=== PATIENT | female | born 1970 | race Caucasian/White ===

== ENCOUNTER 2017-09-09 06:47 | Day surgery (SDC) | payer BC ==
[~2017-09-09 06:47] MED LIST: Lactated Ringers 1,000 ML IV SCH; Sodium Chloride 0.9% 10 ML Syringe FLUSH PRN
[2017-09-09] MEDS ORDERED: Propofol 200 MG/20 ML SDV IV ONE (07:50)
--- NOTE | 2017-09-09 08:23 | PREOP ---
ADMISSION DATE: 09/09/2017 CHIEF COMPLAINT: Need for screening colonoscopy. HISTORY OF PRESENT ILLNESS: This is a 46-year-old white female who is referred with a family history of colon cancer. She had a mother who had colon polyps. Her sister had at the age of 58, from colon cancer. She is currently asymptomatic and notes no significant issues. She has never had a scope. SOCIAL HISTORY: The patient is a former smoker having stopped a year ago. She has a 40-bomg-lcda smoking history. She has 4 glasses of wine a week and 6 cans of beer per week. FAMILY HISTORY: Significant for breast cancer, colon polyps and colon cancer as well as CVA. MEDICATIONS: 1. Calcium carbonate with vitamin D 1 tablet per day. 2. Albuterol inhaler 2 puffs every 4 hours as needed. 3. Lutein 10 mg tablets once per day. 4. Multivitamin once per day. PAST SURGICAL HISTORY: She has had no previous operations. ALLERGIES: She has no seasonal allergies. REVIEW OF SYSTEMS: CONSTITUTIONAL: Negative. HEENT: Negative. EYES: Negative. RESPIRATORY: Negative. CARDIOVASCULAR: Negative. GASTROINTESTINAL: Negative. GENITOURINARY: Negative. MUSCULOSKELETAL: Negative. SKIN: Negative. PHYSICAL EXAMINATION: GENERAL: This is a well-developed, well-nourished white female, appearing in no acute distress. VITAL SIGNS: Reviewed. They are stable. She is afebrile. HEENT: Grossly within normal limits. LUNGS: Clear to auscultation. HEART: Had a regular rate and rhythm. ABDOMEN: Soft, nontender. ASSESSMENT: Family history of colon cancer at an early age. Needs to be screened for colon cancer. A colonoscopy is indicated at this time due to sibling's age. PLAN: Colonoscopy. Risks and procedure were explained to the patient to include bleeding, infection, perforation. The patient expresses understanding and she asked us to proceed. /[id number] /GAETANO RICHARDSON
--- NOTE | 2017-09-09 08:28 | PCM.OPNOTE ---
- General Post-Op/Procedure Note Date of Surgery/Procedure: 09/09/17 Operative Procedure(s): c scope with bx Findings: cecal polyp Pre Op Diagnosis: family hx of colon cancer Post-Op Diagnosis: cecal polyp Anesthesia Technique: JUNO Primary Surgeon: Jh Zamora Anesthesia Provider: Catie Camejo Pathology: cecal polp Complications: None Condition: Good Free Text/Narrative:: see dictation
--- NOTE | 2017-09-09 09:30 | OR ---
DATE OF OPERATION: 09/09/2017 SURGEON: Jh Zamora MD PROCEDURE PERFORMED: Colonoscopy with cold forceps biopsy. PREOPERATIVE DIAGNOSIS: Family history of colon cancer. POSTOPERATIVE DIAGNOSIS: Cecal polyp. INDICATIONS FOR PROCEDURE: This is a 46-year-old white female who is referred with a history of multiple family members with colon polyps and she had a first- degree relative of colon cancer at the age of 58. It was felt that a screening colonoscopy was indicated in this patient. DESCRIPTION OF PROCEDURE: After an excellent IV sedation was administered, digital rectal exam was performed. No marked abnormality was noted. The flexible colonoscope was inserted and advanced to the cecum without difficulty. The prep was excellent. The following findings were noted: Ascending colon and the cecum, there was a flat polypoid appearing lesion, biopsied with cold biopsy forceps and sent for permanent. Transverse colon was unremarkable. Descending colon was unremarkable. Sigmoid was unremarkable. Rectum and anus unremarkable. Colon was deflated and the scope was removed. The patient tolerated the procedure well and was taken to recovery room in good condition. She will follow up in my office in 7-10 days. /[id number] /MODL
== END 2017-09-09 09:35 | disposition home or self-care (01) ==
LOC: FB.SDS 06:47
PROVIDERS: ATTEND Surgery
DX: Z12.11 Encounter for screening for malignant neoplasm of colon (principal); D12.0 Benign neoplasm of cecum; Z80.0 Family history of malignant neoplasm of digestive organs; Z87.891 Personal history of nicotine dependence; Z79.899 Other long term (current) drug therapy
CPT/HCPCS: 81025; 88305; J2704; J7120

== ENCOUNTER 2022-10-05 07:07 | Day surgery (SDC) | payer BC, OTHER ==
[2022-10-05] MEDS ORDERED: Propofol 200 MG/20 ML SDV IV ONE (07:08)
[2022-10-05] MEDS ORDERED: Lidocaine 2% 100 MG/5 ML Syringe IVPUSH ONE (07:08)
== END 2022-10-05 09:57 | disposition home or self-care (01) ==
LOC: FB.SDS 07:07
PROVIDERS: ATTEND Surgery
DX: Z12.11 Encounter for screening for malignant neoplasm of colon (principal); K62.1 Rectal polyp; K63.5 Polyp of colon; Z86.010 Personal history of colon polyps; Z80.0 Family history of malignant neoplasm of digestive organs; Z79.899 Other long term (current) drug therapy; Z91.048 Other nonmedicinal substance allergy status; Z98.890 Other specified postprocedural states; Z87.891 Personal history of nicotine dependence
CPT/HCPCS: 00811; 45384; 45385; 88305; J2704; J7120